=== PATIENT | male | born 1985 | race Caucasian/White ===

== ENCOUNTER 2018-01-15 08:35 | Observation (INO) | payer BC, OTHER ==
[~2018-01-15] VITALS: Ht 172.7 cm; Wt 133.8 kg
[2018-01-15 08:58] VITALS: BP 109/71
[2018-01-15] MEDS ORDERED: ONDANSETRON ODT 4 MG TAB.RAPDIS PO PRN (09:30)
[2018-01-15] MEDS ORDERED: BENZOCAINE/MENTHOL LOZNGE 18'S BOX. PO PRN (09:30)
[2018-01-15 09:42] LABS: BASO % 0 % (0-3); EOS % 0 % (0-3); HEMATOCRIT 43.3 % (39.0-53.0); HEMOGLOBIN 14.9 g/dL (13.0-17.5); LYMPH # 0.3 x10^3/uL (1.0-4.8); LYMPH % 3 % (24-48); MEAN CORPUSCULAR HEMOGLOBIN 30 pg (25-35); MEAN CORPUSCULAR HGB CONC 34 g/dL (31-37); MEAN CORPUSCULAR VOLUME 88 fL (79-100); MONO # 0.1 x10^3/uL (0.0-1.1); MONO % 1 % (0-9); NEUT # 11.8 x10^3uL (1.8-7.7); NEUT % 96 % (31-73); PLATELET COUNT 176 x10^3/uL (140-400); RED BLOOD COUNT 4.91 x10^6/uL (4.30-5.70); WHITE BLOOD COUNT 12.3 x10^3/uL (4.0-11.0)
[2018-01-15 09:57] LABS: ALBUMIN 3.3 g/dL (3.4-5.0); ALBUMIN/GLOBULIN RATIO 0.8 (1.0-1.7); CALCIUM 8.8 mg/dL (8.5-10.1); CREATININE 1.3 mg/dL (0.7-1.3); GFR 64.8; POTASSIUM 4.3 mmol/L (3.5-5.1); TOTAL BILIRUBIN 0.6 mg/dL (0.2-1.0); TOTAL PROTEIN 7.5 g/dL (6.4-8.2)
[2018-01-15 10:28] VITALS: BP 119/77
[2018-01-15] MEDS: IV 1/2 NORMAL SALINE 1,000 ML IV PRN ×2 (10:56→20:11)
[2018-01-15] MEDS: CIPROFLOXACIN 400MG PREMIX 200 ML IV SCH ×2 (10:57→20:12)
[2018-01-15] MEDS ORDERED: cefTRIAXone IV Push 1 GM VIAL. IVP SCH (11:00)
[2018-01-15 15:12] VITALS: BP 134/78
[2018-01-15 19:20] VITALS: BP 115/69
[2018-01-15] MEDS ORDERED: ACETAMINOPHEN 325 MG TABLET PO PRN (22:15)
[2018-01-15 22:37] VITALS: BP 100/61
[2018-01-15 22:49] LABS: BACTERIA,URINE 0 /HPF (0-FEW); BILIRUBIN,URINE NEG (NEG); CLARITY,URINE CLEAR; COLOR,URINE STRAW; GLUCOSE,URINE NEG (NEG); NITRITE,URINE NEG (NEG); RBC,URINE 0 /HPF (0-2); SQUAMOUS EPITHELIAL CELL,UR OCC /LPF; UROBILINOGEN,URINE 0.2 mg/dL (0.2 mg/dL); WBC,URINE 0 /HPF (0-4)
--- NOTE | 2018-01-15 23:48 | HP ---
ADMIT DATE: 01/15/2018 HISTORY OF PRESENT ILLNESS: A 32-year-old gentleman. He has been working in a [place] and then he started to feel ill. He started to have a sore throat, cough, fever and said he never felt this bad as he had felt driving into the Emergency Room initially over at [facility], where they worked him up initially, even did a spinal tap. It was felt the patient was suffering from probable viral meningitis as the patient had one of the worst headaches he ever had in his life. As a result of that and the fact that they were on diversion, the patient was transferred to [facility], where he was further evaluated by Neurology, Dr. Delgado and myself. He was kept on IV antibiotic therapy, which he said seemed to help. Review of labs from the other hospital demonstrated some elevated white count and elevated neutrophils in his spinal fluid, but other than that nothing dramatic. He did have an elevated blood sugar of 199. In any case, the patient was admitted for such. Rule out viral meningitis. PAST MEDICAL HISTORY: Fracture of the hand. IMMUNIZATION FOR INFLUENZA: Up-to-date. FAMILY HISTORY: Unknown. ALLERGIES: PENICILLINS. HOME MEDICATIONS: None. SOCIAL HISTORY: Denies smoking, alcohol or drug use. REVIEW OF SYSTEMS: As noted, severe headache, some neck stiffness, severe sore throat, cough, and general achiness all over. Denies any history of being bitten by insects, ticks; otherwise, or [place] PHYSICAL EXAMINATION: GENERAL: On exam, this is a pleasant white male, looking fairly ill, just not feeling very well. VITAL SIGNS: Blood pressure 110/70, respiratory rate 20, pulse 91, and afebrile at this time. There is some nausea, general neck stiffness, reduced neck mobility. CHEST: The patient's lungs were diminished, but clear. CARDIOVASCULAR: Regular sinus rhythm. NECK: The patient's neck shows some tenderness and decreased range of motion. HEART: Regular sinus rhythm. ABDOMEN: Soft, nontender, although he did have some tenderness in the epigastric area, but no rebounding, no guarding. EXTREMITIES: No clubbing, cyanosis or edema. NEUROLOGIC: The patient was alert and oriented x 3. The patient was admitted for further evaluation. ASSESSMENT: Possible viral meningitis, severe headache. PLAN: Continue to monitor the patient accordingly. Continue on IV antibiotic. Take other cultures from [place] returned and will make further evaluation on him as indicated. ADWOA MONTGOMERY MD DR: FRANCES/kinsey JOB#: [id number] / [id number]
--- NOTE | 2018-01-16 02:28 | CONS ---
DATE OF CONSULTATION: REFERRING PHYSICIAN: Dr. Tanvir Hinojosa CHIEF COMPLAINT: Headache, fever, sore throat. HISTORY OF PRESENT ILLNESS: This is a 32-year-old right-handed male who was transferred from [facility] for further evaluation. The patient initially presented to Emergency Room at the [facility] with a chief complaint of severe global headaches, sore throat, and generalized malaise began at 2 o'clock after noon yesterday. He was extensively evaluated with a spinal tap. The patient denies nausea, vomiting, neck stiffness, visual disturbances, chest pain, shortness of breath or palpitations. He complains of a sore throat as well. He denies any recent infections around the head including ears, sinus or nose. Initial nonenhanced head CT scan revealed no acute intracranial process. A spinal tap was performed and revealed white blood cells of 221, with normal protein and glucose and absent xanthochromia. The patient was initially treated with broad spectrum antibiotics and pain medications along with a dose of acyclovir intravenously. This morning, the patient denies fever, but stated his headache came down to 2/10 on scale. He denies nausea, vomiting or any other medical or neurological complaints. His malaise has improved as well. PAST MEDICAL HISTORY: Significant for anxiety, asthma, gastric ulcer, gluten intolerance. FAMILY HISTORY: Positive for Crohn's disease. SOCIAL HISTORY: The patient quit smoking on 12/15/2016. He denies alcohol drinking or illicit drug use. CURRENT HOSPITAL MEDICATIONS: The patient was continued on ceftriaxone, Rocephin, and ciprofloxacin. ALLERGIES: SEAFOOD, WHEAT CONTAINING PRODUCTS, and AMOXICILLIN. REVIEW OF SYSTEMS: A 10-point review of system was performed as mentioned above in history of present illness, otherwise unremarkable. PHYSICAL EXAMINATION: GENERAL: Obese male, not in acute distress. He weighs 295 pounds. VITAL SIGNS: Blood pressure 109/71, respiratory rate 20, pulse is 91, temperature 98.5, and oxygen saturation is 95% on room air. HEENT: Normocephalic, atraumatic, otherwise unremarkable. The oropharyngeal exudate and posterior oropharyngeal erythema present. NECK: Supple. Negative for carotid bruit, lymphadenopathy or thyromegaly. LUNGS: Clear to A and P. CARDIOVASCULAR: Regular rate and rhythm, normal S1, S2. There is no S3, S4, or murmur. ABDOMEN: Soft. Bowel sounds positive. EXTREMITIES: Negative for cyanosis, clubbing or pitting edema. NEUROLOGIC: MENTAL STATUS: The patient is alert and oriented x 3. Speech is fluent. There is no language dysfunction. Memory, judgment, and abstract thinking are normal. The patient denies hallucination or delusion. CRANIAL NERVES: Visual jeter are full. The pupils are reactive to light and accommodation. The extraocular movements are intact. There is no nystagmus. There is no facial motor or sensory deficit. Hearing is intact bilaterally. The palate is elevated symmetrically. Sternocleidomastoid muscles are powerful bilaterally. The patient shrugs his shoulders symmetrically, protrudes his tongue in the midline without fasciculation or atrophy. MOTOR: No focal or muscle bulk was seen. The tone is normal. The strength is 5/5 throughout. Sensory examination revealed normal pinprick, light touch, vibratory and position senses. Deep tendon reflexes were symmetric and active without pathology responses. Gait and coordination are normal. LABORATORY DATA: CBC revealed white blood cells of 10,300, hemoglobin 15.1, hematocrit 43, platelet count 187,000. Chemistry revealed sodium of 135, potassium 4.1, chloride 99, CO2 27, glucose 126, BUN 11, creatinine 1.1. Spinal fluid analysis revealed white blood cells of 221, with normal protein and glucose at 62 and 31 respectively and negative xanthochromia. Initial nonenhanced head CT scan revealed no evidence of acute intracranial process, but possible bilateral ethmoid sinusitis. Other lab includes negative influenza A and influenza B antigens, throat culture is negative for Streptococcus group A antigen and Gram stain of spinal fluid is negative as well. IMPRESSION: 1. Headaches, sore throat, and fever -- improved, like with spinal fluid analysis suggestive of viral meningitis of mild severity. 2. History of asthma, anxiety, and obesity. RECOMMENDATIONS: Continue with the current management initiated by Dr. Hinojosa. No further neurological workup is necessary at this time. M Miguel Ángel CUENCA MD DR: MIKE/kinsey JOB#: [id number] / [id number]
[2018-01-16 05:14] VITALS: BP 109/73
[2018-01-16] MEDS: IV 1/2 NORMAL SALINE 1,000 ML IV PRN (05:14)
[2018-01-16 05:59] LABS: BASO # 0.1 x10^3/uL (0.0-0.2); BASO % 0 % (0-3); EOS # 0.2 x10^3/uL (0.0-0.7); EOS % 2 % (0-3); HEMATOCRIT 40.4 % (39.0-53.0); LYMPH # 1.4 x10^3/uL (1.0-4.8); LYMPH % 13 % (24-48); MEAN CORPUSCULAR HEMOGLOBIN 31 pg (25-35); MEAN CORPUSCULAR HGB CONC 35 g/dL (31-37); MEAN CORPUSCULAR VOLUME 88 fL (79-100); MONO % 9 % (0-9); NEUT # 8.5 x10^3uL (1.8-7.7); NEUT % 76 % (31-73); PLATELET COUNT 177 x10^3/uL (140-400); RED BLOOD COUNT 4.57 x10^6/uL (4.30-5.70); RED CELL DISTRIBUTION WIDTH 13.3 % (11.5-14.5); WHITE BLOOD COUNT 11.2 x10^3/uL (4.0-11.0)
[2018-01-16 06:02] LABS: CALCIUM 8.6 mg/dL (8.5-10.1); CREATININE 1.1 mg/dL (0.7-1.3); GFR 78.6; POTASSIUM 4.1 mmol/L (3.5-5.1)
[2018-01-16] MEDS: CIPROFLOXACIN 400MG PREMIX 200 ML IV SCH (08:13)
[2018-01-16] MEDS ORDERED: LACTOBACILLUS RHAMNOSUS GG 1 CAPSULE. PO SCH (09:30)
[2018-01-16] MEDS ORDERED: CIPR500T94 PO (09:56)
--- NOTE | 2018-01-16 10:06 | PN ---
DATE: 01/16/2018 SUBJECTIVE: The patient denies any new medical neurological complaints. The patient stated he is back to his baseline. He denies headache, nausea, vomiting, chest pain, shortness of breath or palpitation, dysarthria, dysphagia, weakness or paresthesia. OBJECTIVE: GENERAL: Obese male, not in acute distress. VITAL SIGNS: Stable, blood pressure 109/73, respiratory rate 16, pulse is 60 and regular, temperature 97.9, oxygen saturation is 94% on room air. HEENT: Normocephalic, atraumatic, otherwise unremarkable. NECK: Supple. Negative for carotid bruit, lymphadenopathy or thyromegaly. LUNGS: Clear to A and P. CARDIOVASCULAR: Regular rate and rhythm, normal S1, S2. There is no S3, S4 or murmur. ABDOMEN: Soft. Bowel sounds positive. EXTREMITIES: Negative for cyanosis, clubbing, or pitting edema. NEUROLOGICAL: Normal mental status, and intact cranial nerves. There is no focal, motor or sensory deficit. Deep tendon reflexes are symmetric and active without pathology responses. Gait and coordination within normal. LABORATORY DATA: CBC revealed white blood cells of 11,200, hemoglobin 14, hematocrit 48.4, platelet count 177,000. Chemistry revealed sodium of 140, potassium 4.1, chloride 106, CO2 29, BUN 7, creatinine 1.12, calcium 8.6, and glucose 121. IMPRESSION: 1. Possible viral meningitis, presented with severe headache, sore throat, and fever. The patient stated all his symptoms have resolved. 2. History of asthma, anxiety, and obesity. RECOMMENDATION: Continue with the current management initiated by Dr. Hinojosa. M Miguel Ángel CUENCA MD DR: MIKE/kinsey JOB#: [id number] / [id number]
== END 2018-01-16 10:47 | disposition home or self-care (01) ==
LOC: INTOOBSV 08:35 → 1 SOUTH 08:35
PROVIDERS: ADMIT Family Medicine; ATTEND Family Medicine
DX: J02.9 Acute pharyngitis, unspecified (principal); J45.909 Unspecified asthma, uncomplicated; F41.9 Anxiety disorder, unspecified; E66.9 Obesity, unspecified; Z87.11 Personal history of peptic ulcer disease; Z87.891 Personal history of nicotine dependence
CPT/HCPCS: 36415; 80048; 80053; 81001; 83605; 85025; 85379; 96361; 96365; 96366; G0378; G0379; J0696; J0744; J7030

== ENCOUNTER 2018-04-21 07:33 | Emergency (ER) | payer OTHER ==
[~2018-04-21] VITALS: Ht 172.7 cm; Wt 135.4 kg
[~2018-04-21 07:33] MED LIST: CIPR500T94 PO
[2018-04-21] MEDS ORDERED: LIDO:MAALOX 1:1 20 ML SINGLE DOSE. PO ONE (08:00)
[2018-04-21] MEDS ORDERED: IV NORMAL SALINE 1,000ML 1,000 ML IV SCH (08:14)
--- NOTE | 2018-04-21 08:39 | PHYS DOC ---
Past History Past Medical History: Anxiety, Asthma, Diverticulitis, GERD, Other Past Surgical History: No Surgical History Smoking: Cigarettes Alcohol Use: Rarely Drug Use: None Adult General Chief Complaint Chief Complaint: Chest pain HPI HPI Patient is a 32 year old male who presents with complaining of pain in his chest and upper abdomen after drinking and eating for the last1.5 days. Patient complaining of intermittent episodes of sharp and burning substernal pain with radiation to his back after drinking liquids and eating that gradually getting worse. Patient complaining of shortness of breath and palpitation and dizziness since this morning and rated his pain 8/10. Review of Systems Review of Systems Constitutional: Denies fever or chills [] Eyes: Denies change in visual acuity, redness, or eye pain [] HENT: Denies nasal congestion or sore throat [] Respiratory: Denies cough or shortness of breath [] Cardiovascular: No additional information not addressed in HPI [] GI: Denies abdominal pain, nausea, vomiting, bloody stools or diarrhea [] : Denies dysuria or hematuria [] Musculoskeletal: Denies back pain or joint pain [] Integument: Denies rash or skin lesions [] Neurologic: Denies headache, focal weakness or sensory changes [] Endocrine: Denies polyuria or polydipsia [] All other systems were reviewed and found to be within normal limits, except as documented in this note. Current Medications Current Medications Current Medications Medications (Trade) Dose Ordered Sig/Alicia Start Time Stop Time Status Last Admin Dose Admin Multi-Ingredient Mouthwash/Gargle (Gi Cocktail) 20 ml 1X ONCE 04/21/18 08:00 04/21/18 08:01 04/21/18 07:54 20 ML Allergies Allergies Allergies Coded Allergies Type Severity Reaction Last Updated Verified amoxicillin Allergy Intermediate rash 06/23/13 Yes Physical Exam Physical Exam Constitutional: Well developed, well nourished, mild distress, non-toxic appearance. [] HENT: Normocephalic, atraumatic, oropharynx moist, no oral exudates, nose normal. [] Eyes: PERRLA, EOMI, conjunctiva normal, no discharge. [] Neck: Normal range of motion, no tenderness, supple, no stridor. [] Cardiovascular:Heart rate regular rhythm, no murmur [] Lungs & Thorax: Bilateral breath sounds clear to auscultation [] Abdomen: Bowel sounds normal, soft, no tenderness, no masses, no pulsatile masses. [] Skin: Warm, dry, no erythema, no rash. [] Back: No tenderness, no CVA tenderness. [] Extremities: No tenderness, no cyanosis, no clubbing, ROM intact, no edema. [] Neurologic: Alert and oriented X 3, normal motor function, normal sensory function, no focal deficits noted. [] Psychologic: Affect anxious, judgement normal, mood normal. [] Current Patient Data Vital Signs Vital Signs Date Time Temp Pulse Resp B/P (MAP) Pulse Ox O2 Delivery O2 Flow Rate FiO2 04/21/18 07:35 99.1 95 20 96 Room Air EKG EKG EKG interpreted by me. EKG at 0 748 showed normal sinus rhythm at rate of 89, no acute ST and T-wave abnormalities. Radiology/Procedures Radiology/Procedures [] Course & Med Decision Making Course & Med Decision Making Pertinent Labs reviewed. (See chart for details) Evaluation of patient in ER showed 32-year-old male patient with complaining of intermittent episodes of substernal pain after eating and drinking for the last 2 days. Patient treated with GI cocktail, Pepcid, Toradol with partial improvement of his pain. EKG and labs including cardiac enzymes and d-dimer was unremarkable. Patient had history of GERD. Plan discharge patient home to diagnose of GERD. Dragon Disclaimer Dragon Disclaimer This electronic medical record was generated, in whole or in part, using a voice recognition dictation system. Departure Departure: Disposition: 01 HOME, SELF-CARE (at 0955) Condition: STABLE Referrals: ADWOA MONTGOMERY MD (PCP) Patient Instructions: Diet for Gastroesophageal Reflux Disease, Adult, Gastroesophageal Reflux Disease, Adult Additional Instructions: Drink plenty of liquids Follow-up with your primary care physician in 3-5 days Return to ER if not getting better Scripts Sucralfate (CARAFATE) 1 Gm Tablet 1 TAB PO QID for dyspepsia, #60 TAB 0 Refills Prov: DEVIN WEBSTER MD 04/21/18 DEVIN WEBSTER MD Apr 21, 2018 08:39
[2018-04-21] MEDS ORDERED: FAMOTIDINE 20 MG/2 ML VIAL IVP ONE (08:45)
[2018-04-21 08:46] LABS: BASO % 1 % (0-3); EOS # 0.1 x10^3/uL (0.0-0.7); EOS % 1 % (0-3); HEMATOCRIT 46.7 % (39.0-53.0); LYMPH # 1.2 x10^3/uL (1.0-4.8); LYMPH % 14 % (24-48); MEAN CORPUSCULAR HEMOGLOBIN 30 pg (25-35); MEAN CORPUSCULAR HGB CONC 34 g/dL (31-37); MEAN CORPUSCULAR VOLUME 88 fL (79-100); MONO # 1.2 x10^3/uL (0.0-1.1); MONO % 14 % (0-9); NEUT # 6.6 x10^3uL (1.8-7.7); NEUT % 72 % (31-73); PLATELET COUNT 153 x10^3/uL (140-400); RED BLOOD COUNT 5.32 x10^6/uL (4.30-5.70); RED CELL DISTRIBUTION WIDTH 12.6 % (11.5-14.5); WHITE BLOOD COUNT 9.1 x10^3/uL (4.0-11.0)
[2018-04-21 09:24] LABS: ALBUMIN 3.5 g/dL (3.4-5.0); ALBUMIN/GLOBULIN RATIO 0.9 (1.0-1.7); CALCIUM 8.4 mg/dL (8.5-10.1); CREATININE 1.2 mg/dL (0.7-1.3); GFR 71.1; MAGNESIUM 1.8 mg/dL (1.8-2.4); TOTAL BILIRUBIN 0.5 mg/dL (0.2-1.0); TOTAL PROTEIN 7.5 g/dL (6.4-8.2)
[2018-04-21] MEDS ORDERED: KETOROLAC 30 MG/ML VIAL. IV ONE (09:45)
[2018-04-21 09:56] LABS: AMPHETAMINE/METHAMPHETAMINE NEG (NEG); BARBITURATES NEG (NEG); BENZODIAZEPINES NEG (NEG); CANNABINOIDS NEG (NEG); COCAINE NEG (NEG); METHADONE NEG (NEG); OPIATES NEG (NEG); PHENCYCLIDINE NEG (NEG)
[2018-04-21] MEDS ORDERED: SUCR1TAB35 PO (09:59)
[2018-04-21 10:10] VITALS: BP 119/63
--- NOTE | 2018-04-22 07:04 | EKG ---
[address] [address] Test Date: 2018-04-21 Test Time: 07:46:29 Pat Name: ADE MYERS Department: Room: Gender: M Senior Windows Engineer: : 1985 Requested By: DEVIN WEBSTER Order Number: [id number] Reading MD: Alessandro Troy MD Measurements Intervals [place] Rate: 89 P: 37 NH: 126 QRS: 30 QRSD: 92 T: 19 QT: 330 QTc: 402 Interpretive Statements SINUS RHYTHM Electronically Signed On 04-22-2018 13:49:01 HOME MANAGER by Alessandro Troy MD
== END 2018-04-21 10:15 | disposition home or self-care (01) ==
LOC: ER 07:33
DX: R07.2 Precordial pain (principal); R42 Dizziness and giddiness; F41.9 Anxiety disorder, unspecified; K21.9 Gastro-esophageal reflux disease without esophagitis; J45.909 Unspecified asthma, uncomplicated; F17.210 Nicotine dependence, cigarettes, uncomplicated; Z88.1 Allergy status to other antibiotic agents
CPT/HCPCS: 36415; 80053; 80307; 82550; 83690; 83735; 84484; 85025; 85379; 85610; 93005; 96361; 96374; 96375; 99285; J1885; J3490; J7030

== ENCOUNTER → 2018-08-11 | Outpatient (CLI) | payer OTHER ==
[~2018-08-11] MED LIST changes: +IOHEXOL 240 MG/ML 50ML VIAL. ONE; +IOHEXOL 300 MG/ML 75 ML VIAL. IV ONE; +SUCR1TAB35 PO
--- NOTE | 2018-08-11 12:53 | RAD ---
Examination: CT of the abdomen pelvis with IV contrast HISTORY: History of left lower quadrant pain, colitis, diverticulosis. COMPARISON: None available TECHNIQUE: Axial CT images of the abdomen pelvis were performed with IV and oral contrast. Coronal and sagittal reformats are performed Exposure: One or more of the following individualized dose reduction techniques were utilized for this examination: 1. Automated exposure control 2. Adjustment of the mA and/or kV according to patient size 3. Use of iterative reconstruction technique FINDINGS: The bibasilar lungs are clear. No evidence of free air identified in the abdomen. The visualized liver, spleen, adrenals grossly appears unremarkable. The gallbladder is mildly distended. The stomach is mildly distended. The visualized pancreas grossly appears unremarkable. Small bowel is nondilated. There is mild thickened appearance of the wall of the ascending colon. There is mild thickened appearance of the wall of the distal descending colon and sigmoid colon with minimal surrounding fat stranding. Small lymph nodes identified in the right lower quadrant of the abdomen with the largest measuring 1.7 cm. Urinary bladder is mildly distended. The bilateral kidneys enhance symmetrically. Punctate 1 mm intrarenal collecting system calculus right kidney. Mild degenerative changes lumbar spine. IMPRESSION: 1. Mild thickened appearance of the wall of the distal descending colon and sigmoid colon with minimal surrounding fat stranding likely colitis. 2. There is thickened appearance of the wall of the ascending colon distally could be due to nondistention or underlying mucosal pathology such as neoplasm is not completely excluded. Follow-up colonoscopy recommended. Few prominent lymph nodes identified in the right lower quadrant of the abdomen could be metastasis or reactive lymphadenopathy. 3. Punctate 2 mm calculus right kidney. 4. Few prominent mesenteric lymph nodes identified in the right lower quadrant with the largest measuring 1.7 cm. Electronically signed by: Jose Youngblood MD (08/11/2018 12:50 PM) [facility]
== END | disposition home or self-care (01) ==
LOC: CT 10:03
PROVIDERS: ATTEND Family Medicine
DX: N20.0 Calculus of kidney (principal); N32.89 Other specified disorders of bladder; R59.0 Localized enlarged lymph nodes
CPT/HCPCS: 74177; Q9967

== ENCOUNTER 2020-04-23 05:02 | Emergency (ER) | payer OTHER ==
[~2020-04-23] VITALS: Ht 172.7 cm; Wt 135.4 kg
[~2020-04-23 05:02] MED LIST changes: -IOHEXOL 240 MG/ML 50ML VIAL. ONE; -IOHEXOL 300 MG/ML 75 ML VIAL. IV ONE
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
[2020-04-23 05:13] VITALS: BP 136/90
[2020-04-23] MEDS ORDERED: HYDR-1179 PO ×2 (05:31→05:35)
[2020-04-23] MEDS ORDERED: IBUPROFEN 600 MG TABLET. PO ONE (06:00)
--- NOTE | 2020-04-23 06:02 | RAD ---
EXAM: 1. RIGHT ANKLE 3 VIEWS. 2. RIGHT FOOT 3 VIEWS. HISTORY: Pain after twisting injury. COMPARISON: None. FINDINGS: No fractures are identified about the ankle. The alignment of the mortise is maintained. There is mild irregularity along the lateral corner of the talar dome, consistent with a 4 mm osteochondral lesion. Joint spaces are maintained. No fractures are identified in the foot. Alignment is normal. Joint spaces are maintained. IMPRESSION: 1. 4 mm osteochondral lesion along the lateral corner of the talar dome. This may be acute or chronic. Comparison with older studies could further evaluate versus MRI. Electronically signed by: Pam Oneal MD (04/23/2020 5:59 AM) [facility]
== END 2020-04-23 05:45 | disposition home or self-care (01) ==
LOC: ER 05:02
DX: S93.401A Sprain of unspecified ligament of right ankle, initial encounter (principal); F41.9 Anxiety disorder, unspecified; J44.9 Chronic obstructive pulmonary disease, unspecified; K21.9 Gastro-esophageal reflux disease without esophagitis; F17.210 Nicotine dependence, cigarettes, uncomplicated; Z88.1 Allergy status to other antibiotic agents; X50.9XXA Other and unspecified overexertion or strenuous movements or postures, initial encounter; Y93.89 Activity, other specified; Y92.89 Other specified places as the place of occurrence of the external cause; Y99.8 Other external cause status
CPT/HCPCS: 73610; 73630; 99284

== ENCOUNTER 2020-11-17 03:01 | Inpatient (IN) | payer OTHER ==
[~2020-11-17] VITALS: Ht 172.7 cm; Wt 148.8 kg
[~2020-11-17 03:01] MED LIST changes: +HYDR-1179 PO
--- NOTE | 2020-11-17 03:29 | PHYS DOC ---
Past History Past Medical History: Anxiety, Asthma, Diverticulitis, GERD, Other Past Surgical History: No Surgical History Smoking: Cigarettes Alcohol Use: None Drug Use: None General Adult EDM: Chief Complaint: SHORTNESS OF BREATH HPI: HPI: 35-year-old male presents with shortness of breath and fever. Patient was diagnosed with COVID-19 8 days ago. He has had worsening shortness of breath and cough for last couple of days. He also feels like he has had a fever. On arrival, his fever was 103. The patient did not get vaccinated for COVID-19. He also has had some diarrhea. He denies any other significant symptoms. Review of Systems: Review of Systems: Constitutional: Fever Eyes: Denies change in visual acuity HENT: Denies nasal congestion or sore throat Respiratory: Cough with shortness of breath Cardiovascular: Denies chest pain or edema GI: Diarrhea. Denies abdominal pain, nausea, vomiting, bloody stools. : Denies dysuria Musculoskeletal: Denies back pain or joint pain Integument: Denies rash Neurologic: Denies headache, focal weakness or sensory changes Endocrine: Denies polyuria or polydipsia Lymphatic: Denies swollen glands Psychiatric: Denies depression or anxiety Current Medications: Current Meds: Current Medications Medications (Trade) Dose Ordered Sig/Alicia Start Time Stop Time Status Last Admin Dose Admin Acetaminophen (Tylenol) 1,000 mg 1X ONCE 11/17/20 04:00 11/17/20 04:01 Sodium Chloride 1,000 ml @ 1,000 mls/hr 1X ONCE 11/17/20 04:00 11/17/20 04:59 Allergies: Allergies: Allergies Coded Allergies Type Severity Reaction Last Updated Verified amoxicillin Allergy Intermediate rash 06/23/13 Yes fish derived Allergy Intermediate 11/17/20 Yes Physical Exam: PE: Constitutional: Well developed, well nourished, morbidly obese, no acute distress, non-toxic appearance. [] HENT: Normocephalic, atraumatic, bilateral external ears normal, oropharynx moist, no oral exudates, nose normal. [] Eyes: PERRLA, EOMI, conjunctiva normal, no discharge. [] Neck: Normal range of motion, no tenderness, supple, no stridor. [] Cardiovascular: Heart rate 105, regular rhythm, no murmur [] Lungs & Thorax: Bilateral breath sounds coarse throughout [] Abdomen: Bowel sounds normal, soft, no tenderness, no masses, no pulsatile masses. [] Skin: Warm, dry, no erythema, no rash. [] Back: No tenderness, no CVA tenderness. [] Extremities: No tenderness, no cyanosis, no clubbing, ROM intact, no edema. [] Neurologic: Alert and oriented X 3, normal motor function, normal sensory function, no focal deficits noted. [] Psychologic: Affect normal, judgement normal, mood normal. [] EKG: EKG: [] Radiology/Procedures: Radiology/Procedures: [] Impressions: EXAM: AP View of the chest DATE: 11/17/2020 3:25 AM INDICATION: Reason: fever, cough, covid+ / Spl. Instructions: / History: COMPARISON: No Prior FINDINGS: The heart is not enlarged. Mediastinal and hilar contours are normal. Patchy opacities bilaterally likely consolidative process as pneumonia. Trace left pleural effusion. No pneumothorax. IMPRESSION: 1. Patchy opacities bilaterally likely consolidative process such as pneumonia. 2. Trace left pleural effusion Electronically signed by: Chandra Strickland MD (11/17/2020 4:05 AM) [facility] DICTATED AND SIGNED BY: CHANDRA STRICKLAND MD DATE: 11/17/20 0405 CC: LY DIETRICH DO; ADWOA MONTGOMERY MD ~MTH0 0 Heart Score: C/O Chest Pain: No Risk Factors: Risk Factors: DM, Current or recent (<one month) smoker, HTN, HLP, family history of CAD, obesity. Risk Scores: Score 0 - 3: 2.5% MACE over next 6 weeks - Discharge Home Score 4 - 6: 20.3% MACE over next 6 weeks - Admit for Clinical Observation Score 7 - 10: 72.7% MACE over next 6 weeks - Early Invasive Strategies Course & Med Decision Making: Course & Med Decision Making Pertinent Labs and Imaging studies reviewed. (See chart for details) The patient's labs are significant for a low white count of 3.7. The patient's chest x-ray is suggestive of bilateral pneumonia. This could be bacterial or COVID-19. I will treat him with a gram of Rocephin and 500 of azithromycin IV. We will also pull blood cultures. I cannot get a lactic acid as the lab machine is down and the blood would be no good of recent to our other facility because it takes too long to get there. 30 mL/kg of ideal body weight has been ordered. I will admit the patient for pneumonia. I spoke with Dr. Estrada about the patient and he has agreed to admission. Dr. Estrada has requested dexamethasone IV and 1 mg/kg of Lovenox. These have been given in the ED. 37 minutes of critical care time was spent on this patient exclusive of other billable procedures. [] Dragon Disclaimer: Dragon Disclaimer: This electronic medical record was generated, in whole or in part, using a voice recognition dictation system. Departure Departure: Impression: Primary Impression: COVID-19 Additional Impression: Pneumonia of both lungs Qualified Codes: J18.9 - Pneumonia, unspecified organism Disposition: ADMITTED INPATIENT Admitting Physician: Brenda Estrada Condition: GUARDED Referrals: ADWOA MONTGOMERY MD (PCP) Sepsis Assessment: Date and Time of Assessment Date: Nov 17, 2020 Time: 03:15 Vital Signs Vital Signs Vital Signs Date Time Temp Pulse Resp B/P (MAP) Pulse Ox O2 Delivery O2 Flow Rate FiO2 11/17/20 03:08 103.2 109 24 121/73 (89) 93 Room Air Respirations Respiratory Effort: Normal Respiratory Pattern: Normal Cardiovascular Pulse Rhythm: Regular HEART: No murmurs noted Lung Sounds Breath Sounds: Coarse Capillary Refill Capillary Refill: Rt Hand < 3 seconds Peripheral Pulse Pulse Location: Monitor Pulse Strength: Normal (2+) Pulse Assessment Method: Monitor Integumentary Skin: Warm Skin Moisture: Dry Skin Turgor: Normal Skin Color: no erythema Fingernail Color: WNL Sepsis Assessment: Date and Time of Assessment Date: Nov 17, 2020 Time: 04:20 Vital Signs Vital Signs Vital Signs Date Time Temp Pulse Resp B/P (MAP) Pulse Ox O2 Delivery O2 Flow Rate FiO2 11/17/20 03:08 103.2 109 24 121/73 (89) 93 Room Air Respirations Respiratory Effort: Normal Respiratory Pattern: Normal Cardiovascular Pulse Rhythm: Regular HEART: No murmurs noted Lung Sounds Breath Sounds: Coarse Capillary Refill Capillary Refill: Rt Hand < 3 seconds Peripheral Pulse Pulse Location: Monitor Pulse Strength: Normal (2+) Pulse Assessment Method: Monitor Integumentary Skin: Warm Skin Moisture: Dry Skin Turgor: Normal Skin Color: no erythema Fingernail Color: WNL DIETRICH,LY DO Nov 17, 2020 03:29
[2020-11-17] MEDS ORDERED: ACETAMINOPHEN 500 MG TABLET PO ONE (04:00)
[2020-11-17] MEDS ORDERED: IV NORMAL SALINE 1,000ML 1,000 ML IV ONE (04:00)
[2020-11-17 04:04] LABS: BASO % 0 % (0-3); EOS % 0 % (0-3); HEMATOCRIT 42.2 % (39.0-53.0); HEMOGLOBIN 14.4 g/dL (13.0-17.5); LYMPH # 0.9 x10^3/uL (1.0-4.8); LYMPH % 25 % (24-48); MEAN CORPUSCULAR HEMOGLOBIN 30 pg (25-35); MEAN CORPUSCULAR HGB CONC 34 g/dL (31-37); MEAN CORPUSCULAR VOLUME 88 fL (79-100); MONO # 0.4 x10^3/uL (0.0-1.1); MONO % 10 % (0-9); NEUT # 2.4 x10^3uL (1.8-7.7); NEUT % 65 % (31-73); PLATELET COUNT 115 x10^3/uL (140-400); RED BLOOD COUNT 4.82 x10^6/uL (4.30-5.70); RED CELL DISTRIBUTION WIDTH 13.3 % (11.5-14.5); WHITE BLOOD COUNT 3.7 x10^3/uL (4.0-11.0)
[2020-11-17 04:08] LABS: HEMOGLOBIN ISTAT 13.9 gm/dL; POTASSIUM ISTAT 3.8 mmol/L (3.5-5.0)
--- NOTE | 2020-11-17 04:08 | RAD ---
EXAM: AP View of the chest DATE: 11/17/2020 3:25 AM INDICATION: Reason: fever, cough, covid+ / Spl. Instructions: / History: COMPARISON: No Prior FINDINGS: The heart is not enlarged. Mediastinal and hilar contours are normal. Patchy opacities bilaterally likely consolidative process as pneumonia. Trace left pleural effusion. No pneumothorax. IMPRESSION: 1. Patchy opacities bilaterally likely consolidative process such as pneumonia. 2. Trace left pleural effusion Electronically signed by: Chandra Hatfield MD (11/17/2020 4:05 AM) [facility]
[2020-11-17] MEDS ORDERED: cefTRIAXone SODIUM 1 GM VIAL ONE (04:21)
[2020-11-17] MEDS ORDERED: IV NORMAL SALINE 50ML 50 ML ONE ×2 (04:21→04:22)
[2020-11-17] MEDS ORDERED: AZITHROMYCIN 500 MG in IV NORMAL SALINE 250ML 250 ML IV ONE (04:30)
[2020-11-17] MEDS: IV NORMAL SALINE 1,000ML 1,000 ML IV SCH ×3 (04:32→07:30)
[2020-11-17] MEDS ORDERED: IV NORMAL SALINE 250ML 250 ML ONE (04:57)
[2020-11-17] MEDS ORDERED: AZITHROMYCIN 500 MG VIAL. IV ONE (04:57)
[2020-11-17] MEDS ORDERED: ACETAMINOPHEN 325 MG TABLET PO PRN (05:30)
[2020-11-17] MEDS ORDERED: ONDANSETRON PF 4 MG/2 ML VIAL. IVP PRN (05:30)
[2020-11-17 05:33] LABS: BILIRUBIN,URINE NEG (NEG); CLARITY,URINE CLEAR; COLOR,URINE YELLOW; GLUCOSE,URINE NEG (NEG)
[2020-11-17 05:34] LABS: BACTERIA,URINE 0 /HPF (0-FEW); NITRITE,URINE NEG (NEG); RBC,URINE 0 /HPF (0-2); SQUAMOUS EPITHELIAL CELL,UR OCC /LPF; UROBILINOGEN,URINE 0.2 mg/dL (0.2 mg/dL); WBC,URINE RARE /HPF (0-4)
[2020-11-17] MEDS ORDERED: DEXAMETHASONE SOD PHOS 10 MG/ML VIAL. IVP ONE (06:00)
[2020-11-17] MEDS ORDERED: ENOXAPARIN ** NOTE DOSE ** SYRINGE SQ ONE (06:00)
[2020-11-17 10:00] VITALS: BP 114/74
--- NOTE | 2020-11-17 10:41 | NUR ---
PATIENT IS A 35 Y O MALE ARRIVED VIA EMS. PATIENT IS A/O X 4, DENIED ANY PAIN CURRENTLY, STATED HE DOES HAVE INTERMITTENT PAIN WITH COUGH AROUND RIB CAGE. PATIENT DENIED N/V, PATIENT C/O DRY COUGH. PATIENT IS CURRENTLY IN A BED RESTING, PATIENT WAS ORIENTED TO THE ROOM AND HOSPITAL POLICIES.
[2020-11-17] MEDS: PROMETH/CODEINE 6.25/10MG 5 ML SYRUP. PO PRN ×2 (12:48→19:34)
[2020-11-17] MEDS: IPRATROPIUM/ALBUTEROL 20/100mcg/INH INHALER. INH SCH ×3 (12:48→19:33)
[2020-11-17] MEDS ORDERED: IV DEXTROSE 5 %-0.45 % NACL 1,000 ML IV SCH (13:00)
[2020-11-17] MEDS ORDERED: PIP/TAZO PER PHARMACY MC PRN (13:15)
[2020-11-17 13:44] VITALS: BP 112/78
[2020-11-17] MEDS ORDERED: ACETAMINOPHEN 500 MG TABLET PO PRN (18:30)
--- NOTE | 2020-11-17 19:00 | HP ---
ADMIT DATE: 11/17/2020 HISTORY OF PRESENT ILLNESS: He is a 35-year-old male came in through the Emergency Room with increased shortness of breath, fever and chills. He was diagnosed with COVID-19 8 days ago, had worsening shortness of breath, coughing today, unable to keep his oxygen saturation above 90%. He had a fever of 103 degrees on the Emergency Room visit. The patient was seen with bilateral lobe pneumonia per chest x-ray. COVID-19 appears to be a very high probability obviously since he has had the diagnosis and then x-rays show a situation bilateral lobe pneumonia. He was admitted for IV antibiotic therapy, close monitoring of course for his COVID and IV Decadron as well as antibiotics and breathing treatments. FAMILY HISTORY: Positive for Crohn's and other unknown. PAST MEDICAL HISTORY: Positive for Crohn's, asthma, respiratory symptoms and dental surgery. ALLERGIES: AMOXICILLIN AND FISH DERIVED PRODUCTS. HOME MEDICATIONS: He has been on ciprofloxacin, hydrocodone p.r.n., Carafate. SOCIAL HISTORY: The patient has smoked in the past. Denies any smoking presently. Denies any hard drug use. Occasional alcohol use. The patient obviously is a full code. REVIEW OF SYSTEMS: The patient denies any headaches, visual changes, just feels tired, fatigued, short of breath with minimal exertion, barky cough to the point where he cannot catch his air. The patient denies any nausea, vomiting, melena, but he has got emesis and neurologically baseline for him, although he looks somewhat decreased. PHYSICAL EXAMINATION: GENERAL: This is a pleasant white male, looks ill. VITAL SIGNS: Blood pressure 120/70, respiratory rate 24, pulse 109, temperature 103.2, 93% room air down to 91%. HEENT: The patient's head was atraumatic and normocephalic. Eyes: PERRLA without jaundice. The mouth and throat were normal. NECK: Supple, without JVD or thyromegaly. LUNGS: Diminished. He has poor breath sounds in all 5 lobes. Some expiratory rhonchi. CVR: Tachycardic. ABDOMEN: Protuberant, soft, nontender. EXTREMITIES: Without clubbing, cyanosis, nor edema. NEUROLOGIC: Alert and oriented, but as noted quite ill appearing. IMAGING STUDIES: The patient's chest x-ray is noted bilateral lower lobe infiltrative process, consolidative process was noted. LABORATORY DATA: White count of 3.7, hemoglobin 13 and hematocrit 42, and 10% monocytes, which are high. Chemistries; 136, 3.8, BUN and creatinine 6 and 1, glucose 112. The patient doing well and will be continued to be monitored. IMPRESSION: COVID-19 pneumonia, sepsis, bronchospasm, asthma-like dyspnea. The patient continued on IV antibiotic therapy. Decadron IV infusions, Combivent inhaler. Continue to monitor carefully and make further evaluation on him as indicated. FRANCES/DWAYNE DR: Arjun TID: [id number]
[2020-11-17 19:10] VITALS: BP 143/80
[2020-11-17] MEDS: SUCRALFATE 1 GM TABLET. PO SCH (19:33)
[2020-11-17] MEDS: ENOXAPARIN 40 MG/0.4 ML SYRINGE. SQ SCH (19:34)
[2020-11-17] MEDS: LACTOBACILLUS RHAMNOSUS GG 1 CAPSULE. PO SCH (19:36)
--- NOTE | 2020-11-17 20:15 | NUR ---
RT AT BEDSIDE INSTRUCTING PT HOW TO USE SPACER WITH HIS COMBIVENT INHALER.
[2020-11-17] MEDS: DEXAMETHASONE SOD PHOS 4 MG/ML VIAL. IVP SCH (21:16)
[2020-11-17 22:59] VITALS: BP 112/72
[2020-11-18] MEDS: DEXAMETHASONE SOD PHOS 4 MG/ML VIAL. IVP SCH ×3 (06:12→22:00)
[2020-11-18 06:25] VITALS: BP 120/74
[2020-11-18 07:19] LABS: BASO % 0 % (0-3); EOS % 0 % (0-3); HEMATOCRIT 42.1 % (39.0-53.0); HEMOGLOBIN 14.3 g/dL (13.0-17.5); LYMPH # 0.7 x10^3/uL (1.0-4.8); LYMPH % 16 % (24-48); MEAN CORPUSCULAR HEMOGLOBIN 30 pg (25-35); MEAN CORPUSCULAR HGB CONC 34 g/dL (31-37); MEAN CORPUSCULAR VOLUME 89 fL (79-100); MONO # 0.3 x10^3/uL (0.0-1.1); MONO % 8 % (0-9); NEUT # 3.2 x10^3uL (1.8-7.7); NEUT % 76 % (31-73); PLATELET COUNT 143 x10^3/uL (140-400); RED BLOOD COUNT 4.76 x10^6/uL (4.30-5.70); RED CELL DISTRIBUTION WIDTH 13.1 % (11.5-14.5); WHITE BLOOD COUNT 4.2 x10^3/uL (4.0-11.0)
[2020-11-18 08:10] LABS: ALBUMIN 2.9 g/dL (3.4-5.0); ALBUMIN/GLOBULIN RATIO 0.6 (1.0-1.7); CALCIUM 8.3 mg/dL (8.5-10.1); GFR 86.1; POTASSIUM 4.4 mmol/L (3.5-5.1); TOTAL BILIRUBIN 0.4 mg/dL (0.2-1.0); TOTAL PROTEIN 7.4 g/dL (6.4-8.2)
[2020-11-18] MEDS: LACTOBACILLUS RHAMNOSUS GG 1 CAPSULE. PO SCH ×2 (08:40→20:49)
[2020-11-18] MEDS: SUCRALFATE 1 GM TABLET. PO SCH ×4 (08:40→20:49)
[2020-11-18] MEDS: ENOXAPARIN 40 MG/0.4 ML SYRINGE. SQ SCH ×2 (08:40→20:50)
[2020-11-18] MEDS: IPRATROPIUM/ALBUTEROL 20/100mcg/INH INHALER. INH SCH ×4 (08:40→20:00)
[2020-11-18] MEDS: AZITHROMYCIN 500 MG in IV NORMAL SALINE 250ML 250 ML IV SCH (08:42)
[2020-11-18 11:00] VITALS: BP 114/74
[2020-11-18] MEDS ORDERED: DEXTROSE 50% 25 GM / 50ML DISP.SYRIN. IV PRN (12:00)
[2020-11-18] MEDS: INSULIN LISPRO 300 UNITS/3 ML VIAL. SQ SCH ×2 (13:14→17:00)
[2020-11-18 15:00] VITALS: BP 121/70
[2020-11-18 20:11] VITALS: BP 102/59
--- NOTE | 2020-11-18 21:24 | PN ---
SUBJECTIVE: The patient is in with sepsis, bilateral lobe, COVID-19 pneumonia. Says he is feeling little better. He looks a little stronger this morning, still receiving IV antibiotic therapy, Rocephin, Zithromax and Combivent inhaler. OBJECTIVE: VITAL SIGNS: Blood pressure 120/70, respiratory rate 20, pulse 70, afebrile, 91 on room air. GENERAL: The patient is alert and oriented, seems to be a little bit more energetic. LUNGS: Show both inspiratory and expiratory wheezes, tightness throughout both the upper and lower lobes of the lungs. CARDIOVASCULAR: Regular sinus rhythm. ABDOMEN: Soft, nontender. EXTREMITIES: No clubbing, cyanosis or edema. NEUROLOGIC: Stable. Otherwise, the patient seems to be making fairly good progress overall. White count has come up to 4.2, hemoglobin and hematocrit 14 and 34. LABORATORY DATA: The patient's sodium and potassium were stable. His albumin is still low at 2.9. IMPRESSION: Sepsis, hypocalcemia, pneumonia, bilateral lobe COVID-19 SARS as the instigator of that, mild hypoxia, severe protein malnutrition. PLAN: Continue with IV antibiotic therapy, Combivent inhaler, make further evaluation. Repeat chest x-ray in the morning and see if it made any progress with that as well. FRANCES/MARISELA DR: FRANCES/kinsey TID: [id number]
[2020-11-18 22:14] VITALS: BP 101/60
[2020-11-19 00:07] LABS: HEMOGLOBIN A1C 5.5 % (4.8-5.6)
[2020-11-19] MEDS: DEXAMETHASONE SOD PHOS 4 MG/ML VIAL. IVP SCH ×2 (06:50→21:28)
--- NOTE | 2020-11-19 07:52 | RAD ---
EXAM: Chest, 2 views. HISTORY: Pneumonia. COMPARISON: 11/17/2020 FINDINGS: 2 views of the chest are obtained. There is stable coarse diffuse increased interstitial op acity. There is no consolidation, pleural fusion or pneumothorax. The heart is normal in size. IMPRESSION: Stable diffuse interstitial infiltrate. Electronically signed by: Dominique Jha MD (11/19/2020 7:50 AM) [facility]
[2020-11-19] MEDS: IPRATROPIUM/ALBUTEROL 20/100mcg/INH INHALER. INH SCH ×4 (08:17→19:43)
[2020-11-19] MEDS: ENOXAPARIN 40 MG/0.4 ML SYRINGE. SQ SCH ×2 (08:18→21:28)
[2020-11-19] MEDS: LACTOBACILLUS RHAMNOSUS GG 1 CAPSULE. PO SCH ×2 (08:18→21:27)
[2020-11-19] MEDS: SUCRALFATE 1 GM TABLET. PO SCH ×4 (08:19→21:27)
[2020-11-19] MEDS: INSULIN LISPRO 300 UNITS/3 ML VIAL. SQ SCH ×3 (08:52→17:00)
[2020-11-19] MEDS: AZITHROMYCIN 500 MG in IV NORMAL SALINE 250ML 250 ML IV SCH (09:27)
[2020-11-19 10:51] VITALS: BP 113/69
--- NOTE | 2020-11-19 14:50 | NUR ---
Nurse note Patient has had an uneventful shift. Independent in room with ADLs, tolerates medications well, and eating meals. Patient denies pain and blood pressures have improved.
[2020-11-19 16:37] VITALS: BP 138/67
[2020-11-19 19:53] VITALS: BP 129/70
--- NOTE | 2020-11-20 05:09 | PN ---
SUBJECTIVE: A 35-year-old male in with sepsis, COVID-19 pneumonia, bilateral lobe. The patient's x-ray do not show much improvement, although the patient himself says he feels a little bit better. Still says it is best to continue on IV antibiotic therapy as the patient still has bilateral lobe pneumonia. OBJECTIVE: VITAL SIGNS: Blood pressure 138/70, respiratory rate 22, pulse 80, afebrile, 94 on room air. GENERAL: The patient is alert and oriented. HEENT: Speech fluent and spontaneous. Pleasant gentleman. LUNGS: Diminished, but clear than it had been, but still diminished throughout. CARDIOVASCULAR: Regular sinus rhythm. ABDOMEN: Soft, protuberant. EXTREMITIES: No clubbing, cyanosis or edema. NEUROLOGIC: The patient is stable. IMPRESSION: Therefore of sepsis, bilateral lobe pneumonia from COVID-19, hypoglycemia secondary to steroids. PLAN: Taper down on steroids. Continue on IV antibiotic therapy. LEE DR: Arjun TID: [id number]
[2020-11-20 06:12] VITALS: BP 119/71
--- NOTE | 2020-11-20 06:30 | NUR ---
Nursing note: Pt independent in room, no c/o pain, slept much of shift.
[2020-11-20] MEDS: SUCRALFATE 1 GM TABLET. PO SCH ×4 (07:55→20:23)
[2020-11-20] MEDS: DEXAMETHASONE SOD PHOS 4 MG/ML VIAL. IVP SCH ×2 (07:55→20:24)
[2020-11-20] MEDS: IPRATROPIUM/ALBUTEROL 20/100mcg/INH INHALER. INH SCH ×4 (07:55→20:00)
[2020-11-20] MEDS: LACTOBACILLUS RHAMNOSUS GG 1 CAPSULE. PO SCH ×2 (07:55→20:23)
[2020-11-20] MEDS: ENOXAPARIN 40 MG/0.4 ML SYRINGE. SQ SCH ×2 (07:56→20:23)
[2020-11-20] MEDS: AZITHROMYCIN 500 MG in IV NORMAL SALINE 250ML 250 ML IV SCH (10:10)
[2020-11-20 11:25] VITALS: BP 111/64
--- NOTE | 2020-11-20 16:48 | NUR ---
Nursing note Pt is resting comfortable in bed pt has not reported any pain this shift.
[2020-11-20 17:13] VITALS: BP 122/74
[2020-11-20 19:08] VITALS: BP 116/78
[2020-11-20 23:07] VITALS: BP 135/90
[2020-11-21 05:25] VITALS: BP 114/79
[2020-11-21] MEDS: IPRATROPIUM/ALBUTEROL 20/100mcg/INH INHALER. INH SCH (08:21)
[2020-11-21] MEDS: LACTOBACILLUS RHAMNOSUS GG 1 CAPSULE. PO SCH (08:46)
[2020-11-21] MEDS: SUCRALFATE 1 GM TABLET. PO SCH (08:46)
[2020-11-21] MEDS: DEXAMETHASONE SOD PHOS 4 MG/ML VIAL. IVP SCH (08:46)
[2020-11-21] MEDS: ENOXAPARIN 40 MG/0.4 ML SYRINGE. SQ SCH (08:46)
[2020-11-21] MEDS ORDERED: CODEINE PO (09:50)
[2020-11-21] MEDS ORDERED: AZIT500T4 PO (09:50)
[2020-11-21] MEDS ORDERED: DEXA4TAB63 PO (09:50)
[2020-11-21] MEDS ORDERED: PROMETH PO (09:50)
[2020-11-21] MEDS: AZITHROMYCIN 500 MG in IV NORMAL SALINE 250ML 250 ML IV SCH (10:07)
[2020-11-21 11:05] VITALS: BP 113/66
--- NOTE | 2020-11-21 13:48 | NUR ---
Nursing note Pt discharged at 1300 via ambulation accompanied by self. pt given written and verbal instructions with verbal statement of understanding given.
--- NOTE | 2020-11-21 21:07 | DS ---
DATE OF DISCHARGE: 11/21/2020 HOSPITAL COURSE: A 35-year-old gentleman came in with increased shortness of breath, recent history of COVID-19, became progressively worse as a result of this, the patient came in, he was in some respiratory distress. His x-ray showed bilateral lobe pneumonia and as a result of the sepsis, pneumonia and COVID-19, the patient was admitted for IV antibiotic therapy as he had failed outpatient therapy. The patient also had severe bronchospasm, asthma-like dyspnea and he was given a Combivent inhaler as well as aggressive IV antibiotic therapy. His repeat chest x-ray a couple days later did not show much better, but he did show marked improvement. He was on Decadron as well as his breathing improved dramatically. The patient was tapered down on his Decadron. Blood sugars were monitored. The patient made excellent progress. He was discharged home. IMPRESSION: Sepsis, COVID-19, bilateral lobe pneumonia, hyperglycemia, severe protein malnutrition, acute respiratory distress. The patient was discharged home. He will continue on , decreased on his Decadron and Zithromax as well as continue with his Combivent inhaler. He will stay off work for at least 7 to 10 days and follow up in the office before he attempts to return to work. FRANCES/MARIOLA/ZULMA DR: FRANCES/kinsey TID: [id number]
== END 2020-11-21 13:57 | disposition home or self-care (01) | DRG 871 ==
LOC: ER 03:01 → 1 SOUTH 05:21
PROVIDERS: ADMIT Family Medicine; ATTEND Family Medicine
DX: A41.89 Other specified sepsis (principal); J12.82 Pneumonia due to coronavirus disease 2019; U07.1 COVID-19; E43 Unspecified severe protein-calorie malnutrition; Z68.42 Body mass index [BMI] 45.0-49.9, adult; K50.90 Crohn's disease, unspecified, without complications; F41.9 Anxiety disorder, unspecified; K21.9 Gastro-esophageal reflux disease without esophagitis; F17.210 Nicotine dependence, cigarettes, uncomplicated; J45.909 Unspecified asthma, uncomplicated; E83.51 Hypocalcemia; R73.9 Hyperglycemia, unspecified; R06.03 Acute respiratory distress; T38.0X5A Adverse effect of glucocorticoids and synthetic analogues, initial encounter; R09.02 Hypoxemia; Z88.1 Allergy status to other antibiotic agents; Y92.89 Other specified places as the place of occurrence of the external cause
CPT/HCPCS: 36415; 71045; 71046; 80047; 80053; 81001; 82947; 83036; 85025; 87040; 96361; 96365; 96367; 96372; 96375; J0456; J0696; J1100; J1650; J1815; J7050; 99285-25; J7030